=== PATIENT | male | born 1990 | race Caucasian/White ===

== ENCOUNTER 2016-12-09 09:49 | Emergency (ER) | payer OTHER, BC ==
[2016-12-09] MEDS ORDERED: NS 0.9% 1000 ML* 2,000 ML IV ONE (10:13)
[2016-12-09 11:18] LABS: Hematocrit 45 % (42-52); Hemoglobin 15.1 g/dl (14.0-18.0); Mean Corpuscular HGB Conc 34 g/dl (31-36); Mean Corpuscular Hemoglobin 29 pg (27-31); Mean Corpuscular Volume 87 fL (80-94); Mean Platelet Volume 8 um3 (7.4-10.4); Red Blood Count 5.16 10^6/ul (4.0-5.4); Red Cell Distribution Width 13 % (10.5-15); White Blood Count 6.9 10^3/ul (3.5-10.8)
[2016-12-09 11:33] LABS: ALT 18 U/L (7-52); AST 24 U/L (13-39); Albumin 4.2 g/dL (3.2-5.2); Alkaline Phosphatase 88 U/L (34-104); Anion Gap 3 mmol/L (2-11); BUN/Creatinine Ratio 14.7 (8-20); Blood Urea Nitrogen 15 mg/dL (6-24); CO2 Carbon Dioxide 28 mmol/L (22-32); Chloride 105 mmol/L (101-111); EGFR African American 114.4 (>60); Globulin 2.3 g/dL (2-4); Glucose 87 mg/dL (70-100); Magnesium 2.1 mg/dL (1.9-2.7); Potassium 4.1 mmol/L (3.5-5.0); Sodium 136 mmol/L (133-145); Total Protein 6.5 g/dL (6.4-8.9)
[2016-12-09 11:45] LABS: Alcohol < 10 mg/dL (<10)
[2016-12-09 11:55] LABS: TSH (Thyroid Stimulating Horm) 1.78 mcIU/mL (0.34-5.60)
[2016-12-09 12:15] VITALS: BP 121/70
[2016-12-09 12:17] LABS: Urine Bilirubin Negative (Negative); Urine Glucose Negative (Negative); Urine Nitrite Negative (Negative)
--- NOTE | 2016-12-24 09:25 | ED ---
scarlet Marcano Timothy, scribed for Austin Hunter MD on 12/09/16 at 1038 . Syncope/Near Syncope - HPI Summary HPI Summary: Delano Castillo is a 26 yo male presenting to [facility] with a possible syncopal episode this morning. Pt sates he was drinking orange juice and felt sudden onset pain when swallowing, and woke up on the floor. He does not remember the event, and it was unwitnessed. He states he woke up on the other side of the room, and dropped a glass near him, with no injury. He states his sleep was normal. He has a Hx of syncope when stitches were removed from his foot, and when he hit his knee. He denies any PMHx. - History Of Current Complaint Chief Complaint: EDSyncope Time Seen by Provider: 12/09/16 10:13 Hx Obtained From: Patient Onset/Duration: Sudden Onset, Lasting Minutes, Resolved Timing: Intermittent Episode Lasting - seconds Context: Witnessed Activity At Onset: At Rest Alleviating Factor(s): Spontaneous Resolution Associated Signs And Symptoms: Other - throat pain - Allergies/Home Medications Allergies/Adverse Reactions: Allergies Allergy/AdvReac Type Severity Reaction Status Date / Time Adhesive Tape Allergy Rash Verified 12/09/16 09:54 PMH/Surg Hx/FS Hx/Imm Hx - Surgical History Surgery Procedure, Year, and Place: [facility] surgery Infectious Disease History: Reports: Traveled Outside the [place] in Last 30 Days - [place] - Family History Known Family History: Positive: Hypertension Negative: Cardiac Disease, Diabetes - Social History Occupation: Employed Full-time Alcohol Use: None Hx Substance Use: No Substance Use Type: Reports: None Hx Tobacco Use: No Smoking Status (MU): Never Smoked Tobacco Review of Systems Constitutional: Negative Negative: Fever, Chills Eyes: Negative Negative: Erythema Positive: Sore Throat - momentary throat pain Cardiovascular: Negative Negative: Chest Pain Respiratory: Negative Negative: Shortness Of Breath, Cough Gastrointestinal: Negative Negative: Abdominal Pain, Vomiting, Nausea Genitourinary: Negative Negative: dysuria, hematuria Musculoskeletal: Negative Negative: Myalgia, Edema - legs Skin: Negative Negative: Rash Neurological: Other - no dizziness Positive: Syncope Psychological: Normal All Other Systems Reviewed And Are Negative: Yes Physical Exam - Summary Physical Exam Summary: Constitutional: Well-developed, Well-nourished, Alert. (-) Distressed Skin: Warm, Dry HENT: Normocephalic; Atraumatic Eyes: Conjunctiva normal Neck: Musculoskeletal ROM normal neck. (-) JVD, (-) Stridor, (-) Tracheal deviation Cardio: Rhythm regular, rate normal, Heart sounds normal; Intact distal pulses; The pedal pulses are 2+ and symmetric. Radial pulses are 2+ and symmetric. (-) Murmur Pulmonary/Chest wall: Effort normal. (-) Respiratory distress, (-) Wheezes, (-) Rales Abd: Soft, (-) Tenderness, (-) Distension, (-) Guarding, (-) Rebound Musculoskeletal: (-) Edema Lymph: (-) Cervical adenopathy Neuro: Alert, Oriented x3 Psych: Mood and affect Normal Triage Information Reviewed: Yes Vital Signs On Initial Exam: Initial Vitals Temp Pulse Resp BP Pulse Ox 97.2 F 51 18 120/67 100 12/09/16 09:52 12/09/16 09:52 12/09/16 09:52 12/09/16 09:52 12/09/16 09:52 Vital Signs Reviewed: Yes Diagnostics - Vital Signs Vital Signs Temp Pulse Resp BP Pulse Ox 12/09/16 09:52 97.2 F 51 18 120/67 100 - Laboratory Result Diagrams: 12/09/16 11:07 12/09/16 11:07 Lab Statement: Any lab studies that have been ordered have been reviewed, and results considered in the medical decision making process. - EKG 1042 Cardiac Rate: Bradycardia - 53 BPM EKG Interpretation: Sinus bradycardia @ 53 BPM. No STEMI. Course/Dx Assessment/Plan: Delano Castillo is a 26 yo male presenting to [facility] with a syncopal episode this morning lasting seconds which spontaneously resolved. In the ED he received IV fluids. After clinical examination and review of his lab studies, he will be discharged home with vasovagal syncope and appropriate instructions. - Diagnoses Differential Diagnosis/HQI/PQRI: Positive: Vasovagal Episode Provider Diagnoses: Vasovagal syncope Discharge - Discharge Plan Condition: Stable Disposition: HOME Patient Education Materials: Syncope (ED) Referrals: [facility] [Primary Care Provider] - 2 Days Additional Instructions: Please follow up with your primary care physician regarding your visit to the emergency department today. Return to the emergency department with any new or recurring symptoms. The documentation as recorded by the scarlet hurst Timothy accurately reflects the service I personally performed and the decisions made by me, Austin Hunter MD.
== END 2016-12-09 12:14 | disposition home or self-care (01) ==
LOC: ED 09:49
DX: R55 Syncope and collapse (principal); J02.9 Acute pharyngitis, unspecified
CPT/HCPCS: 36415; 80053; 80320; 81003; 83605; 83735; 84443; 85025; 93005; 96360; 99282; G0480